=== PATIENT | male | born 1985 | race Caucasian/White ===

== ENCOUNTER 2018-10-01 22:40 | Emergency (ER) | payer MEDICAID ==
[2018-10-02] MEDS: IBUPROFEN 600 MG TAB PO (00:50)
[2018-10-02] MEDS: LORAZEPAM 0.5 MG TAB PO (01:00)
[2018-10-02 01:29] LABS: TROPONIN-I < 0.012 ng/ml (0.000-0.120)
== END 2018-10-02 02:14 | disposition home or self-care (01) ==
LOC: E/R 22:40
DX: R07.9 Chest pain, unspecified (principal); R00.1 Bradycardia, unspecified; F41.9 Anxiety disorder, unspecified; J45.909 Unspecified asthma, uncomplicated
CPT/HCPCS: 84484; 93005; 99283